=== PATIENT | female | born 1955 | race Caucasian/White ===

== ENCOUNTER → 2016-10-24 | Outpatient (CLI) | payer BC ==
[~2016-10-24] MED LIST: ANAS1TAB19 PO; CALCTAB5 PO; CHOL1TAB42 PO; LORA-741 PO; MISCCAP80 PO; MULT-506 PO
[2016-10-24 13:27] VITALS: BP 116/78; PULSE 68; TEMP 36.9; O2SAT 99
--- NOTE | 2016-10-24 17:01 | Radiation Oncology Follow-Up ---
Radiation Oncology Follow-Up Date of Visit October 24, 2016. Reason For Visit 6 month follow-up Radiation Completion Date APBI 02/20/16 Diagnosis (1) Breast cancer Status: Resolved Onset Date: 11/10/2015 Histology Subtype: lobular Stage: l (A) Permanent Comment: Status post right breast cancer 2000 treated with lumpectomy and sentinel lymph node biopsy followed by chemotherapy Adriamycin and Cytoxan, conventional radiation therapy and 5 years of Arimidex Abnormal left breast mammogram Status post left breast biopsy 11/10/2015 Status post lumpectomy and sentinel lymph node biopsy 12/25/2015 Invasive lobular carcinoma Stage pT1c pN0 M0 G3 BRCA1 and 2 negative Oncotype DX score of 14 Status post completion of radiation therapy 02/20/2016 received 3850 cGy utilizing accelerated partial breast treatment. Last Edited By: Nancy Bryan on Mar 04, 2016 14:34 History of Present Illness Ms. Beltran is a 60-year-old female who was originally diagnosed with an infiltrating ductal carcinoma of the lower inner quadrant of the right breast in 2000. The lesion measured 1.2 x 0.7 x 0.6 cm and at the time of partial mastectomy and sentinel lymph node biopsy was found to be ER/TX positive and HER -2/jacob negative. Margins were clear with the exception of the right medial margin which was reexcised with sentinel node biopsies. 2 sentinel nodes were identified and were negative. The reexcision margin was negative. The patient was subsequently started with systemic chemotherapy and May 2001 and completed towards the end of June 2001. We saw her in referral on 2001 and recommended adjuvant radiation to the right breast and chest wall. Patient started treatment on 08/17/2001 and completed on 10/01/2001. She received a dose of 46.8 Gy to the right breast and chest wall and a boost of 14.4 Gy for a total dose of 61.2 Gy. Patient ultimately tolerated the treatment fairly well. She has been followed since that time with no significant sequela I from her treatment. She has been followed with diagnostic mammograms which are remained unremarkable until 11/01/2015. This revealed the expected architectural distortion with associated surgical clips at the 6:00 far posterior right breast at the site of her prior lumpectomy. There was a stable benign- appearing circumscribed 6 mm mass at the 9:00 middle one third of the right breast unchanged dating back to March 2010. However a new 9 mm mass with associated spiculations/architectural distortion at the 12:00 middle one third of the left breast near the fat/glandular interface. This was suspicious and additional imaging studies were recommended and performed. On 11/08/2015 patient underwent an ultrasound of the left breast. This showed at the 12:00 periareolar region and irregular hypoechoic mass with non-circumscribed margins measuring 0.8 x 0.9 x 0.9 cm corresponding to the spiculated mass seen on screening mammogram. This was highly suspicious and recommended ultrasound- guided core needle biopsy was recommended. Targeted ultrasound was performed of the left axillary region. Morphologically normal left axillary lymph nodes are seen without evidence of abnormal axillary adenopathy. On 11/10/2015 patient underwent an ultrasound-guided biopsy of the left breast mass. This revealed an infiltrating ductal carcinoma grade 2 of 3 with no in situ component identified. No lymphovascular or perineural invasion was seen. Estrogen receptors were positive (100%, strong). Progesterone receptors were positive (100%, strong). HER-2/jacob was negative (1+) by immunohistochemistry and negative by FISH analysis. Ki-67 revealed 25% of the cells positive. Case : [id number]. Patient was subsequently seen at [facility] with a review of the slides. They agreed with the diagnosis accession #: [id number]. They did recommend bilateral breast MRIs with without contrast. These were performed on 11/23/2015. An irregular mass with associated signal void from clips measuring 1.5 cm was seen in the left breast at the 12:00 posterior depth position. These findings were consistent with the biopsy-proven infiltrating ductal carcinoma. No suspicious adenopathy was seen in the left axilla. The right breast showed no suspicious enhancement, mass or other abnormalities. There was no suspicious right axillary adenopathy. The discuss treatment options with the patient. She agreed to proceed with breast conserving therapy. She also underwent genetic testing due to a strong family history. The results of this study were negative. On 12/25/2015 the patient underwent a left breast partial mastectomy and sentinel node biopsy. 3 sentinel lymph nodes were identified and all 3 were negative for metastatic carcinoma. The left partial mastectomy specimen revealed residual invasive lobular carcinoma, pleomorphic type, poorly differentiated. There was lobular carcinoma in situ, classic type (predominantly) and pleomorphic type (rare). All margins were negative for invasive carcinoma and pleomorphic LCIS. Additional left breast medial margins were positive for lobular carcinoma in situ classic type. Additional left breast inferior margins were positive for lobular carcinoma in situ classic type. The lesion measured 1.5 cm with indeterminate lymphovascular invasion. Histologic grade was a 3. No DCIS was noted. Staging was pT1c pN0(sn-) ER positive, TX positive, HER-2/jacob negative. Patient went on to have an Oncotype DX evaluation with a recurrence score of 14 which places her in the low risk category. This translates into a ten-year risk of distant recurrence with tamoxifen alone of 9%. Based on this no systemic chemotherapy was recommended. The patient will start anti-estrogen therapy after the completion of her radiation. We were asked to see the patient in referral to evaluate and discuss with her the radiation treatment options. It is for this reason the patient is being seen. She underwent a CT simulation and was found to be a candidate for accelerated partial breast treatment. The treatment was completed 02/20/2016. She received 3850 cGy. Interim History She's been doing well over the past 6 months. She has noted no masses or tenderness of the breast. There are no changes of the axilla. She notices some tightness in the upper chest towards the shoulder with stretching exercises. She is on Arimidex. She does have night sweats, hair thinning, and weight gain. She understands that the benefits of this medication outweigh the side effects. She plans to continue to take the medication. She is up-to-date on mammography. She continues to see Dr. Merida and Dr. Velasco on a regular basis. A left breast digital diagnostic mammogram and ultrasound were performed 05/21/2016. There was no mammographic or targeted sonographic evidence of malignancy within the left breast. Recommendation was for bilateral mammography in October to November of this year. Allergies Coded Allergies: Propoxyphene (Verified Allergy, Mild, 07/07/09) Replaces DARVOCET-N 10 Aminophylline (Verified Allergy, Unknown, 07/07/09) Theophylline (Verified Allergy, Unknown, 07/07/09) Morphine (Verified Adverse Reaction, Mild, NAUSEA, 05/19/15) Home Medications Scheduled Anastrozole (Arimidex), 1 TAB PO DAILY Calcium (Caltrate), 300 MG PO 3XWK Cholecalciferol (Vitamin D), 1 TAB PO DAILY Multivitamin (Multivitamin), 1 TAB PO DAILY Probiotic Product (Probiotic), 1 CAP PO DAILY Scheduled PRN Lorazepam (Ativan), 0.5 MG PO Q6H PRN for Anxiety/Agitation Review of Systems Gastrointestinal: Symptoms: WNL Oral: Symptoms: No Problems Respiratory: Symptoms: WNL Urinary: Symptoms: WNL Skin: Symptoms: No Problems Breast: Right Upper Arm Measurement: 25.0 Right Mid Arm Measurement: 21.0 Right Wrist Measurement: 15.0 Left Upper Arm Measurement: 25.3 Left Mid Arm Measurement: 22.5 Left Wrist Measurement: 15.0 Arm Dominence: Left Physical Exam Vital Signs Date Time Temp Pulse Resp B/P Pulse Ox O2 Delivery O2 Flow Rate FiO2 10/24/16 13:27 36.9 68 12 116/78 99 Fatigue: None General Appearance: no apparent distress Eyes: normal inspection, EOMI ENT: normal ENT inspection, hearing grossly normal Neck: no adenopathy, thyroid normal Respiratory/Chest: lungs clear, no respiratory distress, no accessory muscle use Breast: Breast examination reveals well-healed incisions of the left breast. There are no masses or tenderness and no axillary adenopathy. There is minimal fibrocystic tissue. There is no edema or telangiectasia. There are no skin retractions. Using the Macarthur score cosmesis she has a in excellent outcome. The right breast showed no masses or tenderness and no axillary adenopathy. She has well-healed incisions from her prior surgery. Cardiovascular: regular rate, rhythm, no gallop, no murmur Abdomen: non tender Extremities: no pedal edema Neurologic/Psychiatric: no motor/sensory deficits, alert, normal mood/affect Skin: warm/dry Additional Studies Patient: DESTINY BELTRAN [facility] Rec: [id number] Address1: [address] [facility] Address2: [address] Acct ID: [id number] Date: 1955 Sex: F Ref Phy: Elena Phy: Nancy Bryan PA-C Pri Phy: Ebenezer Ruiz M.D. Inter Phy: Kasie Servin MD [facility] Zip: [place] [address] SC: [id number] Report #: [id number] Blood Bank Manager: KOTA Diagnosis: S/P SURGERY/RADIATION Service Date: 05/21/16 MNE: [id number] Ordering Dr: Nancy Bryan PA-C CC: Nancy Bryan PA-C CONF: DICTATED BY: Kasie Servin MD MAMMOGRAPHY REPORT UNILATERAL LEFT DIGITAL DIAGNOSTIC MAMMOGRAM TOMOSYNTHESIS WITH CAD AND TARGETED LEFT ULTRASOUND: 05/21/2016 CLINICAL HISTORY: 60-year-old woman with a history of remote right breast cancer status post lumpectomy and radiation, and more recently left breast cancer status post lumpectomy in December 2015 and radiation therapy. She presents for first follow-up in the left breast status post treatment. TECHNIQUE: Left breast tomosynthesis in addition to standard 2D mammography, spot magnification left CC and ML views were obtained. Current study was also evaluated with a Computer Aided Detection (CAD) system. COMPARISON: Comparison is made to exams dated: 11/10/2015 ultrasound biopsy, 03/2016 mammogram, 11/08/2015 ultrasound, 11/01/2015 mammogram, and 05/17/2014 mammogram - [facility]. BREAST COMPOSITION: The tissue of the left breast is heterogeneously dense, which may obscure small masses. FINDINGS: There is new expected architectural distortion with surgical clips in the 12:00 left breast, at the site of recent lumpectomy. Additional surgical clips project over the left axilla. There are a few scattered stable benign- appearing round microcalcifications. No new suspicious mass, unexpected architectural distortion or cluster of suspicious microcalcifications is seen. Real-time high-resolution sonographic evaluation was performed throughout the left breast given the breast density and personal history of bilateral breast cancer. Angular hypoechoic tissue extending to the skin surface is identified in the 12:00 left breast and extending into the retroareolar breast, in the area of recent surgery. There is mild edema in the retroareolar breast as well as mild periareolar skin thickening. Throughout the remainder of the left breast, no suspicious solid or cystic mass is identified. IMPRESSION: ACR-BI-RADS CATEGORY 3: PROBABLY BENIGN, TARGETED ULTRASOUND ACR-BI -RADS CATEGORY 3: PROBABLY BENIGN There is no mammographic or targeted sonographic evidence of malignancy within the left breast. Recommend bilateral mammography in October-November 2016 to ensure stability 1 year status post treatment for left breast cancer. These results and recommendations were discussed with the patient at the time of the exam. Approximately 10% of breast cancers are not detected with mammography. A negative mammographic report should not delay biopsy if a clinically suggestive mass is present. Kasie Servin M.D. ay/:05/21/2016 10:35:52 Model And Pattern Supervisor: Luciana MIGUEL)(Melody), [facility] letter sent: Personal History 3 BI-RADS Code: ACR-BI-RADS Category 3: Probably Benign Ultrasound BI-RADS: ACR- BI-RADS Category 3: Probably Benign Dictated by: Kasie Servin MD Signed by: Kasie Servin MD Assessment & Plan Plan: Continue was scheduled mammography. She has a bilateral digital diagnostic mammogram scheduled for 11/20/2016. Continue regular follow-up with Dr. Velasco, Dr. Merida, and her primary care physician. She'll continue on the Arimidex. We asked her to return to our office in 1 year. She may call if she has any questions or concerns in the interim. Total Time In Follow-Up I spent 20 minutes speaking to the patient and performing examination. I spent 15 minutes reviewing information and completing this note. Copy To Everton Merida D.O.; Ebenezer Ruiz M.D.; Emilia Velasco M.D. Problem Qualifiers (1) Breast cancer: Breast location: central portion of breast Estrogen receptor status: positive Patient sex: female Laterality: left Qualified Codes: C50.112 - Malignant neoplasm of central portion of left female breast; Z17.0 - Estrogen receptor positive status [ER+]
== END | disposition home or self-care (01) ==
LOC: C.ONC 13:19
PROVIDERS: ATTEND Physician Assistant Medical
DX: Z08 Encounter for follow-up examination after completed treatment for malignant neoplasm (principal); Z92.3 Personal history of irradiation; Z85.3 Personal history of malignant neoplasm of breast

== ENCOUNTER → 2016-11-20 | Outpatient (CLI) | payer BC ==
--- NOTE | 2016-11-20 14:48 | MAMMOGRAPHY REPORT ---
BILATERAL DIGITAL DIAGNOSTIC MAMMOGRAM TOMOSYNTHESIS WITH CAD: 11/20/2016 CLINICAL HISTORY: History of remote right breast cancer status post lumpectomy and radiation, as well as history of left breast cancer status post lumpectomy December 2015 and radiation therapy. The patien t reports no current complaints. TECHNIQUE: Breast tomosynthesis in addition to standard 2D mammography was performed. Current study was also evaluated with a Computer Aided Detection (CAD) system. Bilateral CC and MLO 2-D and tomosy nthesis images and spot magnification left CC and ML views were obtained. COMPARISON: Comparison is made to exams dated: 05/21/2016 ultrasound, 05/21/2016 mammogram, 6 mammogram, 11/08/2015 ultrasound, 11/01/2015 mammogram, and 05/17/2014 mammogram - [facility]. BREAST COMPOSITION: The tissue of both breasts is heterogeneously dense, which may obscure small mas ses. FINDINGS: There are stable post surgical changes in the left 12:00 breast and right 6:00 breast at t he site of prior lumpectomies, including stable density, architectural distortion, and surgical clips at the lumpectomy beds. Spot magnification views of the left lumpectomy bed demonstrate a few scatt ered punctate benign-appearing calcifications, which are stable compared to the prior exam, without a suspicious mass or cluster of microcalcifications noted. Surgical clips are also noted overlying bi lateral axillae. The remainder of both breasts are stable compared to prior exams, without suspiciou s masses, calcifications, or areas of architectural distortion noted. IMPRESSION: ACR BI-RADS CATEGORY 2: BENIGN Stable postsurgical changes bilaterally, with no mammographic evidence of malignancy in either breast . Recommend routine bilateral mammograms in one year unless otherwise clinically indicated; I would recommend the patient be a diagnostic patient at that time so that spot magnification views can be pe rformed of the lumpectomy bed. Also, given the history of bilateral breast cancer and given the hete rogeneously dense breast parenchyma, the patient may qualify for yearly screening breast MRI in addit ion to annual mammography. The patient has been verbally notified of the results. Approximately 10% of breast cancers are not detected with mammography. A negative mammographic report should not delay biopsy if a clinically suggestive mass is present. Irais Allen M.D. ah/:11/20/2016 11:20:12 Winterizer: Ivelisse GIBSON(R)(M), [facility] letter sent: Normal / BI-RADS Code: ACR BI-RADS Category 2: Benign
== END | disposition home or self-care (01) ==
LOC: C.MAMM 10:40
PROVIDERS: ATTEND Physician Assistant Medical
DX: Z08 Encounter for follow-up examination after completed treatment for malignant neoplasm (principal); Z85.3 Personal history of malignant neoplasm of breast

== ENCOUNTER → 2016-11-20 | Outpatient (CLI) | payer BC ==
[2016-11-20 09:50] LABS: CHOLESTEROL/HDL RATIO 1.9
--- NOTE | 2017-01-08 13:41 | CODING QUERY MEDICAL NECESSITY ---
SUPPORTING DIAGNOSIS NEEDED A supporting diagnosis is required for the test/procedure performed on this patient in order for us to be reimbursed by the patient's insurance. Please provide a supporting diagnosis for the following test/procedure listed below next to the test name along with your signature. *If there is no additional diagnosis for this patient that would support the following test/procedure please document that below next to the test/procedure. Test(s)/Procedure(s) that require a supporting diagnosis: * VITAMIN D, 25-HYDROXY DIAGNOSIS: Provider Signature: Date: Thank you Sunshine Dill [employer] Information Management Once completed, please kindly fax back to [phone] For questions please call [phone]
== END | disposition home or self-care (01) ==
LOC: C.LABSPEC 08:51
PROVIDERS: ATTEND Family Medicine
DX: G35 Multiple sclerosis (principal); E78.5 Hyperlipidemia, unspecified; E55.9 Vitamin D deficiency, unspecified

== ENCOUNTER → 2018-01-12 | Outpatient (CLI) | payer BC ==
[~2018-01-12] MED LIST changes: -ANAS1TAB19 PO; +ANAS1TAB59 PO
== END | disposition home or self-care (01) ==
LOC: C.MAMM 13:05
PROVIDERS: ATTEND Nurse Practitioner Family
DX: C50.812 Malignant neoplasm of overlapping sites of left female breast (principal); M85.851 Other specified disorders of bone density and structure, right thigh; M85.852 Other specified disorders of bone density and structure, left thigh